=== PATIENT | female | born 1970 ===

== ENCOUNTER 2018-05-21 13:06 | Outpatient (CLI) | payer OTHER | END 2018-05-21 13:20 | disposition home or self-care (01) | LOC: OFIC 805 13:06 | DX: R22.1 Localized swelling, mass and lump, neck (principal) ==

== ENCOUNTER 2018-06-05 11:11 | Outpatient (CLI) | payer OTHER ==
[~2018-06-05] VITALS: Ht 152.4 cm; Wt 62.6 kg
== END 2018-06-05 11:30 | disposition home or self-care (01) ==
LOC: OFIC 805 11:11
DX: E21.0 Primary hyperparathyroidism (principal); E04.1 Nontoxic single thyroid nodule; K11.23 Chronic sialoadenitis

== ENCOUNTER 2018-07-01 11:36 | Outpatient (CLI) | payer OTHER ==
[~2018-07-01] VITALS: Ht 152.4 cm; Wt 61.2 kg
== END 2018-07-01 18:36 | disposition home or self-care (01) ==
LOC: OFIC 805 11:36
DX: K11.8 Other diseases of salivary glands (principal); E04.1 Nontoxic single thyroid nodule; K11.23 Chronic sialoadenitis

== ENCOUNTER 2018-08-19 12:57 | Emergency (ER) | payer OTHER ==
[~2018-08-19] VITALS: Ht 152.4 cm; Wt 62.6 kg
[2018-08-19] MEDS ORDERED: CLARITIN10 M1 PO (13:14)
[2018-08-19] MEDS ORDERED: RELPAX40 MG PO (13:14)
[2018-08-19] MEDS ORDERED: DEPAKOTE ER500 MG PO (13:14)
== END 2018-08-19 19:33 | disposition home or self-care (01) ==
LOC: ER 12:57
DX: K52.89 Other specified noninfective gastroenteritis and colitis (principal)